=== PATIENT | female | born 1980 | race Caucasian/White ===

== ENCOUNTER 2017-10-15 11:40 | Emergency (ER) | payer MEDICAID, SELFPAY ==
[2017-10-15 11:41] VITALS: BP 140/116; PULSE 111; RESP 16; TEMP 36.8; O2SAT 98; BMI 47.5
--- NOTE | 2017-10-15 11:59 | CT_ITS ---
STUDY: CT BRAIN WITHOUT CONTRAST REASON FOR EXAM: Female, 37 years old. HIT TOP OF HEAD, NO LOC RADIATION DOSAGE (If Supplied By Facility): CTDIvol = ( 60.81 ) mGy, DLP = ( 998.67 ) mGycm TECHNIQUE: Transaxial CT imaging of the brain was performed without administration of intravenous contrast material. Individualized dose optimization techniques were used for this CT. COMPARISON: None. FINDINGS: Normal soft tissue structures. Normal calvarium. Normal size ventricles and extra-axial spaces for the patient's age. Normal white matter tracts of the cerebral hemispheres. Normal basal ganglia and thalami. Normal brainstem. Normal cerebellum. There is no intracranial hemorrhage. There are no findings of an acute ischemic infarction. There is a mucosal retention cyst in the left maxillary sinus measures [address]/Brain/Head without Contrast IMPRESSION: Normal unenhanced CT scan of the brain. Electronically Signed: Yulia Boyce MD at 12:32 EDT Tel , Service support ,
--- NOTE | 2017-10-15 12:43 | ED.DCSUM_ITS ---
- ER Visit Summary Date of Service: 10/15/17 Chief Complaint: [Head injury] History of Present Illness: The patient is a 37 F [presents the emergency department with a head injury that occurred 5 days ago. Patient states that she was putting some things in the trunk of her car when the lid came down and struck her on top of the head. Patient had no loss of consciousness. Patient had some nausea and vomiting the first day. Patient states that since she has had severe headaches and has been unable to sleep at night. Patient complains of nausea yesterday with no vomiting. Currently rates her headache as a 3 out of 10. Patient denies any difficulty with balance or speech.] Physical Examination: [HEENT-PERRLA, EOMI. Cranial nerves II through XII grossly intact. TMs clear. Mucous membranes moist. No adenopathy. No evidence of trauma to her scalp. Cardiovascular-regular rate and rhythm without murmur or ectopy Lungs-clear to auscultation, chest wall stable without crepitus or subcu emphysema Abdomen-normoactive bowel sounds, soft, nontender, no rebound or rigidity, no peritoneal signs. Neuro [id number] and heel durant testing within normal limits, negative Romberg, negative for drift, fundi benign Extremities-intact ?4, normal range of motion, normal pulses, atraumatic] Test Results: [CT scan of the brain without contrast was normal.] Emergency Department Course and Treatment: [Patient advised use Motrin or Tylenol for discomfort] Treatment Plan: [Patient to follow-up with her primary care physician within next 5-7 days.] Disposition: [Discharged home in stable condition] Impression: [Closed head injury/concussion] This note was generated with [employer] dictation software. It may contain incorrect words, spelling, and punctuation that were not noted in review of the chart prior to signing Head injury ED Disposition - Plan for ED Patient: Chief Complaint: Head Injury Referrals: Morgan De MD [Primary Care Provider] -
--- NOTE | 2017-10-15 12:43 | ED.DEP ---
ED Disposition - Plan for ED Patient: Chief Complaint: Head Injury Instructions: ED Concussion Referrals: Morgan De MD [Primary Care Provider] - 5-7 Days
[2017-10-15 13:01] VITALS: BP 121/77; PULSE 62; RESP 15; O2SAT 98
== END 2017-10-15 13:02 | disposition home or self-care (01) ==
LOC: ED 12:24
PROVIDERS: Emergency Provider Emergency Medicine; PCP Family Medicine
DX: S06.0X0A Concussion without loss of consciousness, initial encounter (principal); Z72.0 Tobacco use; Z79.899 Other long term (current) drug therapy; W20.8XXA Other cause of strike by thrown, projected or falling object, initial encounter; Y93.89 Activity, other specified; Y92.89 Other specified places as the place of occurrence of the external cause; Y99.8 Other external cause status
CPT/HCPCS: 70450; 99282

== ENCOUNTER → 2019-03-03 | Outpatient (CLI) | payer MEDICAID, SELFPAY ==
--- NOTE | 2019-03-03 11:10 | LES_PTH ---
PATIENT: HOSSEIN TERRAZAS LOC: [facility] U#:[id number] AGE/SX: 38/F ROOM: RE03/03/[address]: Dr. Omar Costa MD : 1980 BED: DIS: 03/03/2019 SPEC #: [id number] RECD: 03/03/19 14:10 STATUS: HELIO MARCIO #: [id number] KERON: 03/03/19 11:[address]: Omar Costa DEPT: SURGICAL PATHOLOGY RECD BY: Tari Higginbotham ENTERED: 03/03/19 15:19 SP TYPE: Lesion OTHR DR: Dr. Morgan De MD Tissues: Skin of nose, NOS Procedures: Surgery Specimen Level III HEADER OPERATION: Brow lesion removal (from left nasal bridge) PRE-OP DIAGNOSIS: Left nasal canthus lesion, likely cyst on removal TISSUE SUBMITTED: Left nasal canthus lesion MICROSCOPIC DIAGNOSIS Left nasal canthus lesion, biopsy: Epidermal inclusion cyst. SHERIF:chris 03/04/19 MICROSCOPIC DESCRIPTION Slides are reviewed. GROSS DESCRIPTION Received in fixative is one container labeled with the patient's name and designated left brow area. The specimen consists of an irregular fragment of pink-white soft tissue measuring 1.5 x 1 x 0.3 cm. The specimen is totally submitted in one cassette. / AM:chris 03/03/19 TC:5 CPT: 98194
== END | disposition home or self-care (01) ==
LOC: LABSPEC 14:30
PROVIDERS: Family Provider Family Medicine; PCP Family Medicine; Referring Provider Ophthalmology; Visit Provider Ophthalmology
DX: L98.9 Disorder of the skin and subcutaneous tissue, unspecified (principal)
CPT/HCPCS: 88304; 88305

== ENCOUNTER → 2020-01-05 | Outpatient (CLI) | payer MEDICAID, SELFPAY ==
--- NOTE | 2020-01-05 | LES_PTH ---
PATIENT: HOSSEIN TERRAZAS LOC: [facility] U#:[id number] AGE/SX: 39/F ROOM: RE01/05/[address]: Dr. Tori Costa MD : 1980 BED: DIS: 01/05/2020 SPEC #: [id number] RECD: 01/05/20 17:48 STATUS: HELIO MARCIO #: [id number] KERON: 01/05/20 00:[address]: Tori Costa DEPT: SURGICAL PATHOLOGY RECD BY: Xavier Bhatia ENTERED: 01/06/20 10:22 SP TYPE: Lesion OTHR DR: Dr. Morgan De MD Tissues: Skin of eyelid, NOS Procedures: Surgery Specimen Level III HEADER OPERATION: Lesion removal from left brow PRE-OP DIAGNOSIS: Possible inclusion cyst TISSUE SUBMITTED: Left medial brow lesion MICROSCOPIC DIAGNOSIS Left medial brow lesion, biopsy: Consistent with epidermal inclusion cyst. SJ:chris 7/24/20 MICROSCOPIC DESCRIPTION Slides are reviewed. GROSS DESCRIPTION Received in fixative is one container labeled with the patient's name and designated left brow. The specimen consists of two irregular fragments of pink-bolaños soft tissue that in aggregate measure 1 x 0.5 x 0.2 cm. The specimen is totally submitted in one cassette. / AM:chris 01/06/20 TC:5 CPT: 71125
== END | disposition home or self-care (01) ==
LOC: LABSPEC 01-06 06:51
PROVIDERS: PCP Family Medicine; Referring Provider Family Medicine; Visit Provider Family Medicine
DX: L98.9 Disorder of the skin and subcutaneous tissue, unspecified (principal)
CPT/HCPCS: 88304; 88305

== ENCOUNTER 2022-05-23 19:56 | Emergency (ER) | payer MEDICAID, SELFPAY ==
[2022-05-23 19:57] VITALS: BP 117/58; PULSE 88; RESP 18; TEMP 36.6; O2SAT 99; BMI 37.8
--- NOTE | 2022-05-23 20:41 | EKG12_ITS ---
Test Reason : CP Blood Pressure : / mmHG Vent. Rate : 075 BPM Atrial Rate : 075 BPM P-R Int : 198 ms QRS Dur : 086 ms QT Int : 384 ms P-R-T Axes : 051 024 075 degrees QTc Int : 428 ms Normal sinus rhythm Normal ECG Confirmed by SHARON LOPEZ, BENJAMIN ([id number]), commissioning editor MELITON HDEZ ([id number]) on 05/28/2022 10:46:13 AM Referred By: TL Confirmed By:GABRIELA HERRERA MD
[2022-05-23] MEDS: Aspirin 81 MG TAB.CHEW 324 MG PO (20:46)
--- NOTE | 2022-05-23 20:50 | RAD_ITS ---
STUDY: X-RAY CHEST REASON FOR EXAM: Female, 42 years old. CHEST PAIN chest pain TECHNIQUE: XR Chest 2 Views COMPARISON: None FINDINGS: There is no demonstrated pleural abnormality. Normal size heart. Normal mediastinum and bneito. Normal visualized pulmonary arteries. Normal visualized aortic arch and descending thoracic aorta. Normal visualized thoracic spine. Normal visualized ribs, clavicles, and shoulders. There is no demonstrated abnormality of the visualized soft tissue structures of the upper abdomen. RAD/Chest PA and Lateral IMPRESSION: There are no acute findings. Electronically Signed: Colin Pablo MD at 21:09 EST ,
[2022-05-23 20:53] LABS: Absolute Lymphocyte Count 2.73 X10^3/uL (0.83-4.51); Absolute Neutrophil Count 5.6 X10^3/uL (2.0-7.7); Basophil# 0.04 X10^3/uL; Basophil% 0.4 % (0-1); Eosinophil# 0.14 X10^3/uL; Eosinophils% 1.5 % (0-5); Hematocrit 39.7 % (37-47); Hemoglobin 12.1 g/dL (12.0-15.0); Lymphocyte # 2.73 X10^3/ul (0.83-4.51); Lymphocyte % 29.7 % (19-41); Mean Corp Hgb Conc 30.5 g/dL (32-36); Mean Corpuscular Hgb 23.4 pg (27.0-32.0); Mean Corpuscular Volume 76.8 fL (81-99); Mean Platelet Vol. 10.5 fl (6.2-12.0); Monocyte# 0.61 X10^3/uL; Monocyte% 6.6 % (0-10); NRBC Flagged by Analyzer 0 % (0-5); Neutrophil # 5.64 X10^3/uL (2.7-7.7); Neutrophil % 61.6 % (47-70); Platelet Count 504 K/mm3 (150-450); RBC Distribution Width CV 16.4 % (11.6-14.6); RBC Distribution Width SD 45.7 fl (35.1-43.9); Red Blood Count 5.17 M/mm3 (4.2-5.4); White Blood Count 9.2 K/mm3 (4.4-11.0)
[2022-05-23 20:55] VITALS: O2SAT 99
[2022-05-23 21:12] LABS: Anion Gap 9 (5-15); BUN 11 mg/dL (7-18); BUN/Creat Ratio 11.2 RATIO (10-20); Chloride 105 mmol/L (98-107); Creatinine, Serum 0.98 mg/dL (0.55-1.02); EST Glomerular Filtration Rate 66 mL/min (>60); Est Glom Filt Rate - Afr Amer 80 mL/min (>60); Estimated Creatinine Clearance 65.89 ml/min; Glucose 121 mg/dL (74-106); Potassium 3.8 mmol/L (3.5-5.1); Sodium Level 137 mmol/L (136-145); Troponin-I HS (w/2H Reflex) 3 pg/mL (3.0-54.0)
[2022-05-23 21:57] VITALS: BP 126/78; PULSE 91; RESP 16; O2SAT 100
[2022-05-23 22:51] LABS: Reflex Troponin-HS? (from REC) Y
[2022-05-23 23:02] LABS: Troponin-I HS 3 pg/mL (3.0-54.0)
--- NOTE | 2022-05-23 23:56 | EDS_ITS ---
HPI History of Present Illness Chief Complaint: Chest Pain Informant: patient Narrative Narrative: Chest pain at rest this evening states twisting sensation left breast went to the left chest and upper shoulder. Pain into the back. No nausea. No diaphoresis. Denies recent illness. History of hyperlipidemia tobacco and diabetes. No family history less than 55 with MIs. Stress test years ago. No recent travel, surgeries, immobilizations. No history of PE or DVT. Symptoms lasted approximately 15 minutes initially resolved and return. On arrival to the ED symptoms subsided. No previous similar symptoms in the past. Prior Similar Symptoms: No CVD Risk Factors: Positive for Diabetes, Hypercholesterolemia and Smoking PE Risk Factors: Negative for Recent Travel/Surgery, Recent Immobilization or Prior DVT or PE [facility] Medical History Diabetes Hyperlipidemia Home Medications paroxetine HCl 40 mg tablet (Paxil) 40 mg PO DAILY 02/20/14 [History Last Taken Unknown] atorvastatin 20 mg tablet 20 mg PO DAILY 05/23/22 [History Last Taken Unknown] ferrous gluconate 324 mg (37.5 mg iron) tablet 324 mg PO QODAY 05/23/22 [History Last Taken Unknown] fluoxetine 20 mg capsule 20 mg PO DAILY 05/23/22 [History Last Taken Unknown] levothyroxine 100 mcg tablet 100 mcg PO DAILY 05/23/22 [History Last Taken Unknown] Allergy/AdvReac Type Severity Reaction Status Date / Time Penicillins [PCN] Allergy Unknown Verified 05/23/22 19:59 Social History Smoking Status: Current every day smoker tobacco type: cigarettes ROS ROS ED Constitutional Constitutional ED: Denies chills, fever(s) or sweats Eyes Eyes: Denies change in vision ENT ENT ED: Denies dysphagia or sore throat Cardiovascular Cardiovascular: Reports chest pain; Denies leg edema, palpitations or racing heartbeat Respiratory/Chest Respiratory/Chest: Denies cough, dyspnea or dyspnea on exertion Gastrointestinal Gastrointestinal: Denies abdominal pain, diarrhea, nausea or vomiting Genitourinary Genitourinary ED: Denies dysuria, hematuria or urinary frequency Musculoskeletal Musculoskeletal: Denies back pain, extremity pain or neck pain Integumentary Denies rash or wounds Neurologic Neurologic: Denies headache(s), paresthesias or weakness EXAM Physical Exam Const Vital Signs: 05/23/22 19:57 05/23/22 20:18 05/23/22 20:55 Temperature 97.9 F Temperature Source Temporal Pulse Rate 88 Respiratory Rate 18 Respiratory Effort Normal Non-Labored Blood Pressure 117/58 L Blood Pressure Mean 77 Pulse Ox 99 99 Oxygen Delivery Method Room Air Room Air 05/23/22 21:57 Temperature Temperature Source Pulse Rate 91 Respiratory Rate 16 Respiratory Effort Blood Pressure 126/78 H Blood Pressure Mean 94 Pulse Ox 100 Oxygen Delivery Method Room Air Positive well nourished and well developed General Appearance ED: well developed and NAD HEENT Reports moist mucous membranes normocephalic and atraumatic Eyes PERRL, EOMs intact bilaterally and conjunctivae normal General Eye ED: Yes normal appearance of both eyes Neck no lymphadenopathy and supple General: Negative for tenderness Chest Wall Chest: Negative for tenderness Resp normal respiratory effort and normal air movement Effort and Inspection: symmetric chest movement; Negative for respiratory distress Cardio regular rate, regular rhythm and no murmurs Peripheral Pulses: pulses 2+ throughout GI normal to inspection, nondistended, normoactive bowel sounds and non-tender Palpation: Negative for guarding or rebound tenderness present Back/Spine no CVA tenderness and no thoracic nor lumbar tenderness Extremity normal to inspection General Extremety ED: Negative for edema or tenderness General Extremity: Negative for edema Neuro oriented x3 and no sensory deficits noted Sensorium / Orientation: awake and alert Skin no rashes or lesions noted and no wounds Heart Score History: Slightly/Non-Suspicious ECG: Normal Age: </= 45 years Risk Factors: 1 or 2 Risk Factors Troponin: </= Normal Limit Score: 1 MDM MDM MDM Narrative Medical decision making narrative: Patient asymptomatic on arrival. Treated with aspirin cardiac work-up negative troponin x2. 2 view chest x-ray reviewed by myself and read by radiology negative for acute process. On reevaluation symptoms remain resolved. Heart score is a 1. Discharged outpatient follow-up with strict return precautions. All questions were answered. Lab Data Attestation: I reviewed the patient's lab results. Labs: Laboratory Results - last 24 hr 05/23/22 05/23/22 05/23/22 20:47 20:47 22:26 WBC 9.2 RBC 5.17 Hgb 12.1 Hct 39.7 MCV 76.8 L MCH 23.4 L MCHC 30.5 L RDW Std Deviation 45.7 H RDW Coeff of Courtney 16.4 H Plt Count 504 H MPV 10.5 Immature Gran % (Auto) 0.200 Neut % (Auto) 61.6 Lymph % (Auto) 29.7 [place] [facility] % (Auto) 6.6 Eos % (Auto) 1.5 Baso % (Auto) 0.4 Absolute Neuts (auto) 5.6 Absolute Lymphs (auto) 2.73 Nucleated RBC % 0 Sodium 137 Potassium 3.8 Chloride 105 Carbon Dioxide 23.0 Anion Gap 9 BUN 11 Creatinine 0.98 Estim Creat Clear Calc 65.89 Est GFR (MDRD) Af Amer 80 Est GFR (MDRD) Non-Af 66 BUN/Creatinine Ratio 11.2 Glucose 121 H Calcium 10.0 Troponin I High Sens 3 3 Radiography Diagnostic Testing: Clinical Impression(s) from Imaging Studies Chest X-Ray 05/23/22 20:50 IMPRESSION: There are no acute findings. Electronically Signed: Colin Pablo MD at 21:09 EST Reading Location ID and State: [facility] / [place] , Service support , EKG Initial EKG: Attestation: I personally reviewed and interpreted this EKG as follows: Comments: Sinus rate of 75, no ST or T wave changes. Discharge Plan Triage Chief Complaint: Chest Pain ED Provider: Bret Dominguez Dx/Rx/DC Orders Clinical Impression: Chest pain, History of diabetes mellitus, Tobacco dependence Instructions: ED Chest Pain, Uncertain Cause Prescriptions: No Action paroxetine HCl [Paxil] 40 MG tablet 40 mg PO DAILY atorvastatin 20 mg tablet 20 mg PO DAILY Label Comments: take 1 tablet by mouth at bedtime levothyroxine 100 mcg tablet 100 mcg PO DAILY fluoxetine 20 mg capsule 20 mg PO DAILY Label Comments: take 1 capsule by mouth once daily ferrous gluconate 324 mg (37.5 mg iron) tablet 324 mg PO QODAY Label Comments: take 1 tablet by mouth every other day with breakfast Primary Care Provider: Norberto Will Referrals: Norberto Will MD [Primary Care Provider] - 3-5 Days Activity Restrictions/Additional Instructions: Cardiac work-up negative today. Follow-up with your doctor for further testing. Return if any worsening symptoms. Disposition Disposition: Home, Self Care Discharge Date/Time: 05/23/22 23:43
== END 2022-05-23 23:43 | disposition home or self-care (01) ==
PROVIDERS: Emergency Provider Emergency Medicine; PCP Family Medicine; Visit Provider Emergency Medicine
DX: R07.9 Chest pain, unspecified (principal); E11.9 Type 2 diabetes mellitus without complications; M54.9 Dorsalgia, unspecified; E78.5 Hyperlipidemia, unspecified; F17.210 Nicotine dependence, cigarettes, uncomplicated
CPT/HCPCS: 71046; 80048; 84484; 85025; 93005; 99283; A4216

== ENCOUNTER 2023-05-09 19:39 | Emergency (ER) | payer MEDICAID, SELFPAY ==
[2023-05-09 19:40] VITALS: BP 119/79; PULSE 91; RESP 16; TEMP 36.8; O2SAT 93; BMI 37.6
--- NOTE | 2023-05-09 20:21 | EDS_ITS ---
HPI History of Present Illness Chief Complaint: Head Injury Informant: patient Onset/Context/Timing Onset: Today Mechanism/Context: Blunt Injury Quality of Pain: Stabbing and Throbbing Location: Frontal headache Worsened by: Turning her head to the right Relieved by: Closing her eyes Associated Symptoms Associated Symptoms: Negative for Parasthesias, Weakness, Loss of function, Inability to ambulate, Loss of consciousness or Amnesia Narrative Narrative: Patient presents with a head injury that occurred today. Patient states she was cleaning up a mess and stood up when she did not realize that the freezer door was open. Patient states she hit her head on the bottom of the freezer door. Patient denies any loss of consciousness. Patient states her pain radiates from the frontal area to the bilateral ears and into her neck. Patient states her pain is worse when she turns her head to the right. Patient states it is better when she is able to close her eyes. Patient admits to some nausea but denies any vomiting. Patient denies any paresthesias or weakness. Patient denies any other injuries. [facility] Medical History (Updated 05/09/23 @ 21:[address] Abraham Moreira DO) Diabetes Hyperlipidemia Hypothyroidism Home Medications levothyroxine 100 mcg tablet 100 mcg PO DAILY 05/23/22 [History Last Taken Unknown] Allergy/AdvReac Type Severity Reaction Status Date / Time Penicillins [PCN] Allergy Unknown Verified 05/09/23 19:43 Surgical History no surgical history no surgical history Social History Smoking Status: Current every day smoker tobacco type: cigarettes ROS ROS ED Constitutional Constitutional ED: Denies chills or fever(s) Eyes Eyes: Denies blurry vision or change in vision ENT ENT ED: Denies rhinorrhea or sore throat Cardiovascular Cardiovascular: Denies chest pain or palpitations Respiratory/Chest Respiratory/Chest: Denies cough or dyspnea Gastrointestinal Gastrointestinal: Reports nausea; Denies vomiting Genitourinary Genitourinary ED: Denies dysuria or hematuria Musculoskeletal Musculoskeletal: Reports neck pain; Denies back pain Integumentary Denies abscess or rash Neurologic Neurologic: Reports headache(s); Denies weakness Allergic/Immunologic Allergic/Immunologic ED: Denies mouth swelling or urticaria EXAM Physical Exam Const Vital Signs: 05/09/23 19:40 05/09/23 19:50 Temperature 98.3 F Temperature Source Temporal Pulse Rate 91 Respiratory Rate 16 Respiratory Pattern Normal Blood Pressure 119/79 Blood Pressure Mean 92 Pulse Ox 93 Oxygen Delivery Method Room Air Room Air Positive well nourished and well developed General Appearance ED: well developed and NAD HEENT HEENT Narrative: There is mild tenderness over the frontal scalp. There is no bony crepitance or step-off noted. There are no lacerations noted. There is no edema or ecchymosis noted. Eyes PERRL and EOMs intact bilaterally Neck Neck Narrative: There is tenderness over the cervical paraspinal muscles bilaterally. There is mild midline tenderness over the lower cervical spine. There is no bony crepitance or step-off. There is no edema or ecchymosis. Range of motion was slightly limited in right rotation secondary to pain. Neuro oriented x3, CN's II-XII intact bilaterally, moves all extremities, no focal motor deficits and no sensory deficits noted Scott Coma Scale: document GCS findings Spontaneous Obeys Commands Oriented 15 Sensorium / Orientation: alert Motor Exam: strength 5/5 throughout Psych mental status grossly normal MDM MDM MDM Narrative Medical decision making narrative: Differential diagnosis includes intracranial bleeding, concussion, closed head injury, cervical spine fracture, and acute cervical strain. CT scan of the brain will be obtained to assess for intracranial bleeding. CT scan of the cervical spine will be obtained to assess for cervical spine fracture. Radiography Diagnostic Testing: Clinical Impression(s) from Imaging Studies Brain CT 05/09/23 20:34 IMPRESSION: Negative head/brain CT without intravenous contrast. There has been no change from the reference exam. Electronically Signed: Frank Bello MD at 21:19 EST , Cervical Spine CT 05/09/23 20:34 IMPRESSION: No evidence of acute cervical spinal fracture or spondylolisthesis. Electronically Signed: Frank Bello MD at 21:27 EST , CT scan of the brain was obtained. There is no acute intracranial abnormality. This was interpreted by the radiologist and was also independently reviewed by myself. CT scan of the cervical spine was obtained. There is no cervical spine fracture or spondylolisthesis. This was interpreted by the radiologist and was also independently reviewed by myself. Treatment and Re-Evaluation Narrative: Patient was advised of her findings. Patient was instructed to take Tylenol or ibuprofen as needed for pain. Patient was instructed to use ice to her neck. Patient was instructed to follow-up with her primary care physician in 5 to 7 days. Patient understood and was agreeable with the plan. All questions were answered. Discharge Plan Triage Chief Complaint: Head Injury ED Provider: Abraham Moreira Dx/Rx/DC Orders Clinical Impression: Closed head injury, Hypothyroidism Instructions: ED Head Injury (Adult) Prescriptions: No Action levothyroxine 100 mcg tablet 100 mcg PO DAILY Primary Care Provider: Norberto Will Referrals: Norberto Will MD [Primary Care Provider] - 5-7 Days Disposition Disposition: Home, Self Care
--- NOTE | 2023-05-09 20:34 | CT_ITS ---
EXAM: CT HEAD WITHOUT INTRAVENOUS CONTRAST CLINICAL INDICATION: Injury/Pain TECHNIQUE: Multiple axial images were obtained of the head without intravenous contrast. This CT exam was performed using one or more of the following dose reduction techniques: automated exposure control, adjustment of the mA and/or kV according to patient size, and/or use of iterative reconstruction technique. COMPARISON: 10/15/2017 FINDINGS: BRAIN AND EXTRA-AXIAL SPACES: Unremarkable. No intra- or extra-axial hemorrhage. No evidence of acute infarct. No intracranial mass or mass effect. There is preservation of the navarrete/white matter interface. Posterior fossa structures are unremarkable. Ventricles are appropriate for age. No hydrocephalus. Basal cisterns are patent. BONES/JOINTS: Unremarkable. No discrete lytic or blastic abnormalities. SINUSES: Unremarkable as visualized. Clear. MASTOID AIR CELLS: Unremarkable. Clear. ORBITS: Visualized globes, extraocular muscles, optic nerves and retrobulbar fat appear unremarkable. CT/Brain/Head without Contrast IMPRESSION: Negative head/brain CT without intravenous contrast. There has been no change from the reference exam. Electronically Signed: Frank Bello MD at 21:19 EST ,
--- NOTE | 2023-05-09 20:34 | CT_ITS ---
EXAM: CT CERVICAL SPINE WITHOUT INTRAVENOUS CONTRAST CLINICAL INDICATION: Injury/Pain TECHNIQUE: Helically acquired images were obtained of the cervical spine without intravenous contrast. 2D reformatted images were reviewed. This CT exam was performed using one or more of the following dose reduction techniques: automated exposure control, adjustment of the mA and/or kV according to patient size, and/or use of iterative reconstruction technique. COMPARISON: No relevant prior studies available. FINDINGS: VERTEBRAE: Unremarkable. No fracture. No traumatic subluxation. No discrete lytic or blastic abnormality. Normal alignment. Normal craniocervical junction and cervicothoracic junction. DISCS/SPINAL CANAL/NEURAL FORAMINA: Unremarkable. Disc heights are preserved. No critical stenosis. SOFT TISSUES: Unremarkable. No prevertebral soft tissue swelling. LYMPH NODES: Unremarkable. No cervical adenopathy. LUNG APICES: Unremarkable as visualized. Clear. CT/Spine Cervical without Contras IMPRESSION: No evidence of acute cervical spinal fracture or spondylolisthesis. Electronically Signed: Frank Bello MD at 21:27 EST ,
== END 2023-05-09 22:24 | disposition home or self-care (01) ==
PROVIDERS: Emergency Provider Emergency Medicine; PCP Family Medicine; Visit Provider Emergency Medicine
DX: S09.90XA Unspecified injury of head, initial encounter (principal); E11.9 Type 2 diabetes mellitus without complications; F17.210 Nicotine dependence, cigarettes, uncomplicated; E03.9 Hypothyroidism, unspecified; E78.5 Hyperlipidemia, unspecified; W22.09XA Striking against other stationary object, initial encounter
CPT/HCPCS: 70450; 72125; 99282

== ENCOUNTER 2023-09-06 15:07 | Emergency (ER) | payer MEDICAID, SELFPAY ==
[2023-09-06 15:08] VITALS: BP 104/79; BP 117/76; PULSE 85; PULSE 90; RESP 15; RESP 16; TEMP 35.5; O2SAT 94; O2SAT 98
--- NOTE | 2023-09-06 15:51 | EX.ED.DYSGE1 ---
HPI <JERICHO Hodges - Last Filed: 09/06/23 17:57> History of Present Illness Chief Complaint: Chest Other Narrative Narrative: 43-year-old female with PMH of DM2, hypothyroidism has had 4 days of throbbing left-sided chest pain. Its above her left breast and into the side. It was very mild over the last 3 days but seemed to intensify today. It is not exertional or pleuritic. She has no shortness of breath, nausea or vomiting. She states she had about a month of a cough which resolved a week ago. No recent fever or chills. She smokes 1/2 PPD. No history of DVT/PE. PFSH <JERICHO Hodges - Last Filed: 09/06/23 17:57> [facility] Medical History (Updated 09/06/23 @ 16:32 by JERICHO Hodges) Diabetes Hyperlipidemia Hypothyroidism Home Medications levothyroxine 100 mcg tablet 100 mcg PO DAILY 05/23/22 [History Last Taken Unknown] Allergy/AdvReac Type Severity Reaction Status Date / Time Penicillins [PCN] Allergy Unknown Verified 09/06/23 15:11 Social History Smoking Status: Current every day smoker tobacco type: cigarettes ROS <JERICHO Hodges - Last Filed: 09/06/23 17:57> ROS ED ROS Narrative Constitutional: Negative for fever, chills, malaise. CVS: Positive for chest pain. Negative for palpitations, syncope. Respiratory: Negative for shortness of breath, cough, orthopnea. GI: Negative for abdominal pain, nausea, vomiting. EXAM <JERICHO Hodges - Last Filed: 09/06/23 17:57> Physical Exam Narrative Exam Narrative: CONST: Patient sitting in no acute distress. EYES: Normal inspection. NECK: Normal inspection. RESP: No respiratory distress, CTAB. CVS: Regular rate and rhythm, no murmur, no gallop. Tenderness left anterior chest wall, no deformity or crepitus. ABD: Soft and nontender, no guarding or rebound, nondistended, no hepatosplenomegaly. Back: Normal inspection. SKIN: Color normal, no rash, warm, dry, intact. EXTREMITIES: Normal appearance, no pedal edema. NEURO: Oriented x4. PSYCH: Normal affect. Const Vital Signs: 09/06/23 15:08 09/06/23 15:08 09/06/23 15:42 Temperature 96 F L Temperature Source Temporal Pulse Rate 90 85 Respiratory Rate 16 15 Respiratory Effort Normal Non-Labored Respiratory Pattern Normal Blood Pressure 117/76 104/79 Blood Pressure Mean 89 87 Pulse Ox 94 98 Oxygen Delivery Method Room Air Room Air 09/06/23 17:08 Temperature Temperature Source Pulse Rate 85 Respiratory Rate 20 H Respiratory Effort Respiratory Pattern Blood Pressure 102/66 Blood Pressure Mean 78 Pulse Ox 97 Oxygen Delivery Method Room Air <Dr. Kami Lai DO - Last Filed: 09/12/23 08:23> Physical Exam Const Vital Signs: 09/06/23 15:08 09/06/23 15:08 09/06/23 15:42 Temperature 96 F L Temperature Source Temporal Pulse Rate 90 85 Respiratory Rate 16 15 Respiratory Effort Normal Non-Labored Respiratory Pattern Normal Blood Pressure 117/76 104/79 Blood Pressure Mean 89 87 Pulse Ox 94 98 Oxygen Delivery Method Room Air Room Air 09/06/23 17:08 Temperature Temperature Source Pulse Rate 85 Respiratory Rate 20 H Respiratory Effort Respiratory Pattern Blood Pressure 102/66 Blood Pressure Mean 78 Pulse Ox 97 Oxygen Delivery Method Room Air MDM <JERICHO Hodges - Last Filed: 09/06/23 17:57> [facility] [place] MDM Narrative Medical decision making narrative: History gathered from: Patient and family member Differential: ACS, GERD, chest wall pain Patient has had 4 days of left-sided chest pain of worsened in intensity this morning. It occurs at rest and is not exertional or pleuritic. No associated symptoms. She appears well and nontoxic and is afebrile with normal vital signs. She has normal cardiopulmonary exam. She has mild left chest wall tenderness with no deformity or crepitus and no skin changes. No abdominal tenderness. EKG is sinus rhythm with no ischemic changes and troponin is 4. With 4 days of continuous pain. She does not require serial enzymes. CBC and BMP overall unremarkable. CXR shows no acute process. She is PERC negative so I did not order D-dimer. She was treated with Toradol. I discussed symptomatic management at home and return precautions and she was discharged in stable condition. Lab Data Attestation: I reviewed the patient's lab results. Labs: Laboratory Results - last 24 hr 09/06/23 15:45 WBC 8.8 RBC 5.86 H Hgb 16.3 H Hct 50.6 H MCV 86.3 MCH 27.8 MCHC 32.2 RDW Std Deviation 43.8 RDW Coeff of Courtney 13.8 Plt Count 339 MPV 9.8 Immature Gran % (Auto) 0.200 Neut % (Auto) 67.6 Lymph % (Auto) 23.7 Hinds % (Auto) 6.8 Eos % (Auto) 1.2 Baso % (Auto) 0.5 Absolute Neuts (auto) 6.0 Absolute Lymphs (auto) 2.09 Nucleated RBC % 0 Sodium 139 Potassium 3.6 Chloride 106 Carbon Dioxide 28.0 Anion Gap 5 BUN 12 Creatinine 0.99 Est GFR (MDRD) Af Amer 79 Est GFR (MDRD) Non-Af 66 BUN/Creatinine Ratio 12.1 Glucose 119 H Calcium 9.5 Troponin I High Sens 4 Radiography Diagnostic Testing: Clinical Impression(s) from Imaging Studies Chest X-Ray 09/06/23 15:58 IMPRESSION: Normal x-ray examination of the chest. Electronically Signed: Honorio Downey MD at 16:22 EDT , ED attending interpretation of 2-view chest x-ray shows normal heart size, no acute infiltrate, edema, or effusion. EKG Initial EKG: Attestation: I personally reviewed and interpreted this EKG as follows: Comments: Normal sinus rhythm 83 bpm Normal intervals, no acute ischemic changes <Dr. Kami Lai, DO - Last Filed: 09/12/23 08:23> [facility] Narrative Medical decision making narrative: History gathered from: Patient and family member Differential: ACS, GERD, chest wall pain Patient has had 4 days of left-sided chest pain of worsened in intensity this morning. It occurs at rest and is not exertional or pleuritic. No associated symptoms. She appears well and nontoxic and is afebrile with normal vital signs. She has normal cardiopulmonary exam. She has mild left chest wall tenderness with no deformity or crepitus and no skin changes. No abdominal tenderness. EKG is sinus rhythm with no ischemic changes and troponin is 4. With 4 days of continuous pain. She does not require serial enzymes. CBC and BMP overall unremarkable. CXR shows no acute process. She is PERC negative so I did not order D-dimer. She was treated with Toradol. I discussed symptomatic management at home and return precautions and she was discharged in stable condition. I have personally performed a face to face assessment of the patient and have reviewed the JAYJAY Note. I performed a substantive portion of the visit including all aspects of the following. My jalloh findings include: History is Patient presents with 4 days of left-sided chest pain that worsened in intensity this morning. Is not pleuritic or exertional. Patient overall is well-appearing. Does report over the last month she has had cough. Is PE RC negative I do not think requires a D-dimer further workup for pulmonary emboli. Cardiac workup including EKG, chest x-ray and high-sensitivity troponin are normal. Chest x-ray does not show any acute infiltrate, pneumothorax or signs of fluid overload/cardiomegaly. Chest x-ray reviewed by myself as well as radiology. Patient counseled that her pain could be muscle skeletal or pleurisy. Regardless, at this time I think it safe for patient to follow-up outpatient does not require further admission/inpatient cardiac workup. She is agreeable this plan of care. Counseled on alternating NSAIDs and Tylenol for pain control. Discharged home in stable condition. Remains hemodynamically stable in the emergency room. Other additions or changes: [None] Lab Data Labs: Laboratory Results - last 24 hr 09/06/23 15:45 WBC 8.8 RBC 5.86 H Hgb 16.3 H Hct 50.6 H MCV 86.3 MCH 27.8 MCHC 32.2 RDW Std Deviation 43.8 RDW Coeff of Courtney 13.8 Plt Count 339 MPV 9.8 Immature Gran % (Auto) 0.200 Neut % (Auto) 67.6 Lymph % (Auto) 23.7 Hinds % (Auto) 6.8 Eos % (Auto) 1.2 Baso % (Auto) 0.5 Absolute Neuts (auto) 6.0 Absolute Lymphs (auto) 2.09 Nucleated RBC % 0 Sodium 139 Potassium 3.6 Chloride 106 Carbon Dioxide 28.0 Anion Gap 5 BUN 12 Creatinine 0.99 Est GFR (MDRD) Af Amer 79 Est GFR (MDRD) Non-Af 66 BUN/Creatinine Ratio 12.1 Glucose 119 H Calcium 9.5 Troponin I High Sens 4 Radiography Diagnostic Testing: Clinical Impression(s) from Imaging Studies Chest X-Ray 09/06/23 15:58 IMPRESSION: Normal x-ray examination of the chest. Electronically Signed: Honorio Downey MD at 16:22 EDT , Discharge Plan Triage Chief Complaint: Chest Other ED Midlevel Provider: Samantha Andrade ED Provider: Kami Lai Dx/Rx/DC Orders Clinical Impression: Chest pain of unknown etiology Instructions: ED Chest Pain, Uncertain Cause Prescriptions: No Action levothyroxine 100 mcg tablet 100 mcg PO DAILY Primary Care Provider: Norberto Will Referrals: Norberto Will MD [Primary Care Provider] - Activity Restrictions/Additional Instructions: Your screening tests are normal. I recommend alternating Tylenol and ibuprofen as needed and following up with your primary care doctor. Disposition Disposition: Home, Self Care Discharge Date/Time: 09/06/23 18:36
[2023-09-06 15:57] LABS: Absolute Lymphocyte Count 2.09 X10^3/uL (0.83-4.51); Basophil# 0.04 X10^3/uL; Basophil% 0.5 % (0-1); Eosinophil# 0.11 X10^3/uL; Eosinophils% 1.2 % (0-5); Hematocrit 50.6 % (37-47); Hemoglobin 16.3 g/dL (12.0-15.0); Lymphocyte # 2.09 X10^3/ul (0.83-4.51); Lymphocyte % 23.7 % (19-41); Mean Corp Hgb Conc 32.2 g/dL (32-36); Mean Corpuscular Hgb 27.8 pg (27.0-32.0); Mean Corpuscular Volume 86.3 fL (81-99); Mean Platelet Vol. 9.8 fl (6.2-12.0); Monocyte% 6.8 % (0-10); NRBC Flagged by Analyzer 0 % (0-5); Neutrophil # 5.95 X10^3/uL (2.7-7.7); Neutrophil % 67.6 % (47-70); Platelet Count 339 K/mm3 (150-450); RBC Distribution Width CV 13.8 % (11.6-14.6); RBC Distribution Width SD 43.8 fl (35.1-43.9); Red Blood Count 5.86 M/mm3 (4.2-5.4); White Blood Count 8.8 K/mm3 (4.4-11.0)
--- NOTE | 2023-09-06 15:58 | RAD_ITS ---
STUDY: X-RAY CHEST REASON FOR EXAM: Female, 43 years old. chest pain TECHNIQUE: PA and lateral views of the chest. COMPARISON: None. FINDINGS: The lungs are clear and expanded. There is no demonstrated pleural abnormality. Normal size heart. Normal mediastinum and benito. Normal visualized pulmonary arteries. Normal visualized aortic arch and descending thoracic aorta. Normal visualized thoracic spine. Normal visualized ribs, clavicles, and shoulders. There is no demonstrated abnormality of the visualized soft tissue structures of the upper abdomen. RAD/Chest PA and Lateral IMPRESSION: Normal x-ray examination of the chest. Electronically Signed: Honorio Downey MD at 16:22 EDT ,
[2023-09-06 16:14] LABS: Anion Gap 5 (5-15); BUN 12 mg/dL (7-18); BUN/Creat Ratio 12.1 RATIO (10-20); Calcium,Total 9.5 mg/dL (8.5-10.1); Chloride 106 mmol/L (98-107); Creatinine, Serum 0.99 mg/dL (0.55-1.02); EST Glomerular Filtration Rate 66 mL/min (>60); Est Glom Filt Rate - Afr Amer 79 mL/min (>60); Glucose 119 mg/dL (74-106); Potassium 3.6 mmol/L (3.5-5.1); Sodium Level 139 mmol/L (136-145); Troponin-I HS 4 pg/mL (3.0-54.0)
[2023-09-06] MEDS: Ketorolac 15 MG/ML Vial IV (16:18)
--- NOTE | 2023-09-06 16:43 | EKG12_ITS ---
Test Reason : CP Blood Pressure : / mmHG Vent. Rate : 083 BPM Atrial Rate : 083 BPM P-R Int : 182 ms QRS Dur : 086 ms QT Int : 364 ms P-R-T Axes : 060 034 073 degrees QTc Int : 427 ms Normal sinus rhythm Normal ECG Confirmed by Tawanda Rahman ([id number]), electronic news gathering editor ALEXANDRA ANNA ([id number]) on 09/09/2023 9:02:55 AM Referred By: CG/UG Confirmed By:Tawanda Rahman
[2023-09-06 17:08] VITALS: BP 102/66; PULSE 85; RESP 20; O2SAT 97
[2023-09-06 18:27] VITALS: BP 128/65; PULSE 74; RESP 16; TEMP 36.7; O2SAT 99
== END 2023-09-06 18:36 | disposition home or self-care (01) ==
PROVIDERS: Physician Assistant; Emergency Provider Emergency Medicine; PCP Family Medicine; Visit Provider Emergency Medicine
DX: R07.89 Other chest pain (principal); E11.9 Type 2 diabetes mellitus without complications; F17.210 Nicotine dependence, cigarettes, uncomplicated; E03.9 Hypothyroidism, unspecified
CPT/HCPCS: 71046; 80048; 84484; 85025; 93005; 96374; 99283; A4216

== ENCOUNTER 2023-12-02 22:32 | Emergency (ER) | payer MEDICAID, SELFPAY ==
[2023-12-02 22:34] VITALS: BP 126/105; PULSE 85; RESP 18; TEMP 36.4; O2SAT 98; BMI 37.6
[2023-12-02 22:42] VITALS: BP 126/105; PULSE 85; RESP 18; TEMP 36.4; O2SAT 98
[2023-12-02] MEDS: Gabapentin 300 MG Capsule PO (23:33)
[2023-12-02 23:35] VITALS: BP 126/105; PULSE 85; RESP 18; TEMP 36.4; O2SAT 98
--- NOTE | 2023-12-02 23:55 | EX.ED.DYSGE1 ---
HPI History of Present Illness Chief Complaint: Wound Check Informant: patient and spouse/S.O. Narrative Narrative: Presents with pain that is worsened across her right upper quadrant towards her flank. She states a week ago was seen at [place] ED had a rash on her right upper quadrant she states it was white like lesions. She was diagnosed with spider bites. She states since then those has broken and scabbed over. Today pain has gone across her back and is burning sensation. No fevers. History of chickenpox as a child. She has not had shingles. She is a diabetic. Reviewing pictures from her phone of her reported history vesicle like lesions were noted. Prior similar symptoms: No PFSH PFSH Medical History Hypothyroidism Hyperlipidemia Diabetes Home Medications ?Medication ?Instructions ?Recorded ?Last Taken ?Type levothyroxine 100 mcg tablet 100 mcg PO DAILY 05/23/22 Unknown History gabapentin 300 mg capsule 300 mg PO QHS #30 caps 12/02/23 Unknown Rx Allergy/AdvReac Type Severity Reaction Status Date / Time Penicillins (PCN) Allergy Unknown Verified 12/02/23 22:34 Social History Smoking Status: Current every day smoker tobacco type: cigarettes ROS ROS ED Constitutional Constitutional ED: Denies chills, fever(s) or sweats Eyes Eyes: Denies change in vision ENT ENT ED: Denies dysphagia or sore throat Cardiovascular Cardiovascular: Denies chest pain, leg edema, palpitations or racing heartbeat Respiratory/Chest Respiratory/Chest: Denies cough, dyspnea or dyspnea on exertion Gastrointestinal Gastrointestinal: Denies abdominal pain, diarrhea, nausea or vomiting Genitourinary Genitourinary ED: Denies dysuria, hematuria or urinary frequency Musculoskeletal Musculoskeletal: Denies back pain, extremity pain or neck pain Integumentary Reports rash; Denies wounds Neurologic Neurologic: Denies headache(s), paresthesias or weakness EXAM Physical Exam Const Vital Signs: 12/02/23 22:34 12/02/23 22:42 12/02/23 23:35 Temperature 97.5 F L 97.5 F L 97.5 F L Temperature Source Temporal Oral Pulse Rate 85 85 85 Respiratory Rate 18 18 Blood Pressure 126/105 H 126/105 H 126/105 H Blood Pressure Mean 112 112 112 Pulse Ox 98 98 98 Oxygen Delivery Method Room Air Room Air Positive well nourished and well developed General Appearance ED: well developed and NAD HEENT Reports moist mucous membranes normocephalic and atraumatic Eyes EOMs intact bilaterally and conjunctivae normal General Eye ED: Yes normal appearance of both eyes Neck no lymphadenopathy and supple General: Negative for tenderness Chest Wall Chest: Negative for tenderness Resp normal respiratory effort and normal air movement Effort and Inspection: symmetric chest movement; Negative for respiratory distress Cardio regular rate, regular rhythm and no murmurs Peripheral Pulses: pulses 2+ throughout GI normal to inspection, nondistended, normoactive bowel sounds and non-tender Palpation: Negative for guarding or rebound tenderness present Back/Spine no CVA tenderness and no thoracic nor lumbar tenderness Extremity normal to inspection General Extremety ED: Negative for edema or tenderness General Extremity: Negative for edema Neuro oriented x3 and no sensory deficits noted Sensorium / Orientation: awake and alert Skin Skin Narrative: Right upper quadrant scab-like lesions noted in the region of her vesicular lesions from her picture. She had tenderness along the dermatome to the flank region. There is no new vesicles there. Symptoms do not cross midline. MDM MDM MDM Narrative Medical decision making narrative: Interventions / MDM: Differential diagnosis: Shingles, neuralgia Diagnosis considered but do not suspect: N/A My EKG interpretation: N/A Imaging independently reviewed and interpreted by myself: N/A External documents reviewed: N/A Test considered but not ordered:N/A ED course: Nontoxic vital stable. From her history I am concerned for shingles rash and not from spider bite. This consistent. She now has developed neuralgia from this. She is a diabetic. She did not want the steroids. She is over a week of symptoms no indication for this or viral medications. I did discuss gabapentin for neuropathic pain control. She agrees to this. 300 mg start this evening prescription to use nightly for symptom control. She can use ibuprofen as she states no history of CKD or stomach ulcers. She will follow-up with her PCP. All questions were answered. Re-evaluation: stable Disposition discussed with patient/family/significant other: Patient and significant other Case discussed with consulting clinician: N/A This note was generated with Define My Style dictation software. It may contain incorrect words, spelling, and punctuation that were not noted in checking the note before signing. Discharge Plan Triage Chief Complaint: Wound Check Other Complaint: Back ED Provider: Bret Dominguez Dx/Rx/DC Orders Clinical Impression: Shingles rash, Neuralgia of abdomen, History of diabetes mellitus Instructions: ED Shingles (Herpes Zoster) Prescriptions: New gabapentin 300 mg capsule 300 mg PO QHS Qty: 30 0RF No Action levothyroxine 100 mcg tablet 100 mcg PO DAILY Primary Care Provider: Norberto Will Referrals: Norberto Will MD [Primary Care Provider] - 5-7 Days Activity Restrictions/Additional Instructions: History of rash and symptoms consistent with shingles. Take gabapentin as prescribed to help with pain. Use ibuprofen as needed. Your rash is currently scabbed over, no concerns for transferable issues. Follow-up with your doctor. Print Language: Nigerien Disposition Disposition: Home, Self Care Discharge Date/Time: 12/02/23 23:36
== END 2023-12-02 23:36 | disposition home or self-care (01) ==
PROVIDERS: Emergency Provider Emergency Medicine; PCP Family Medicine; Visit Provider Emergency Medicine
DX: B02.9 Zoster without complications (principal); E11.9 Type 2 diabetes mellitus without complications; R21 Rash and other nonspecific skin eruption; F17.210 Nicotine dependence, cigarettes, uncomplicated; E78.5 Hyperlipidemia, unspecified; M79.2 Neuralgia and neuritis, unspecified
CPT/HCPCS: 99283

== ENCOUNTER 2024-05-10 19:14 | Emergency (ER) | payer MEDICAID, SELFPAY ==
[2024-05-10 19:14] VITALS: BP 134/97; PULSE 78; RESP 18; TEMP 36.8; O2SAT 100; BMI 39.4
[2024-05-10 19:16] VITALS: BP 134/97; PULSE 78; RESP 18; TEMP 36.8; O2SAT 100
--- NOTE | 2024-05-10 19:17 | EKG12_ITS ---
Test Reason : DYSRHYTHMIA Blood Pressure : */* mmHG Vent. Rate : 70 BPM Atrial Rate : 70 BPM P-R Int : 210 ms QRS Dur : 84 ms QT Int : 382 ms P-R-T Axes : 29 25 65 degrees QTcB Int : 412 ms Sinus rhythm with 1st degree A-V block Otherwise normal ECG Confirmed by Tawanda Rahman ([id number]), publications editor MELITON HDEZ ([id number]) on 05/11/2024 10:42:29 AM Referred By: Gurpreet Day Confirmed By: Tawanda Rahman
--- NOTE | 2024-05-10 19:35 | RAD_ITS ---
EXAM: XR CHEST, 1 VIEW CLINICAL INDICATION: CP TECHNIQUE: Frontal view of the chest. COMPARISON: 09/06/2023 FINDINGS: LUNGS AND PLEURAL SPACES: No significant abnormality. No consolidation or edema. No pneumothorax. No effusion. HEART: No significant abnormality. Cardiac silhouette not enlarged. MEDIASTINUM: Central airways and mediastinal contour are unremarkable. BONES/JOINTS: No significant abnormality. No acute fracture. SOFT TISSUES: No significant abnormality. RAD/Chest 1 View (Portable) IMPRESSION: No radiographic evidence of acute cardiopulmonary disease. Electronically Signed: Derrek Garcia DO at 20:07 EST ,
[2024-05-10 19:55] LABS: Absolute Lymphocyte Count 2.01 X10^3/uL (0.83-4.51); Absolute Neutrophil Count 5.8 X10^3/uL (2.0-7.7); Basophil# 0.04 X10^3/uL; Basophil% 0.5 % (0-1); Eosinophil# 0.08 X10^3/uL; Hematocrit 50.8 % (37-47); Hemoglobin 16.7 g/dL (12.0-15.0); Lymphocyte # 2.01 X10^3/ul (0.83-4.51); Lymphocyte % 23.9 % (19-41); Mean Corp Hgb Conc 32.9 g/dL (32-36); Mean Corpuscular Hgb 29.3 pg (27.0-32.0); Mean Corpuscular Volume 89.1 fL (81-99); Mean Platelet Vol. 9.6 fl (6.2-12.0); Monocyte# 0.47 X10^3/uL; Monocyte% 5.6 % (0-10); NRBC Flagged by Analyzer 0 % (0-5); Neutrophil # 5.78 X10^3/uL (2.7-7.7); Neutrophil % 68.6 % (47-70); Platelet Count 342 K/mm3 (150-450); RBC Distribution Width SD 42.5 fl (35.1-43.9); White Blood Count 8.4 K/mm3 (4.4-11.0)
[2024-05-10 20:09] LABS: Anion Gap 4 (5-15); BUN 15 mg/dL (7-18); Calcium,Total 9.9 mg/dL (8.5-10.1); Chloride 106 mmol/L (98-107); Creatinine, Serum 0.94 mg/dL (0.55-1.02); EST Glomerular Filtration Rate 70 mL/min (>60); Est Glom Filt Rate - Afr Amer 85 mL/min (>60); Glucose 109 mg/dL (74-106); Potassium 3.9 mmol/L (3.5-5.1); Sodium Level 137 mmol/L (136-145); Troponin-I HS 4 pg/mL (3.0-54.0)
--- NOTE | 2024-05-10 20:15 | ED.VIS.DYS ---
HPI History of Present Illness Chief Complaint: Shortness of Breath Informant: patient Narrative Narrative: 44-year-old patient with type 2 diabetes states she has had cold symptoms for about a week, she visited PCP and had a negative COVID/flu test and was told she probably has a viral illness, but within the past couple days she has developed central and left-sided chest burning that goes into her left upper back, and dyspnea with exertion, and the feeling like it is difficult to get a good deep breath. Some of the discomfort is a little worse when she takes a very deep breath. She denies any history of DVT or PE, no recent leg pain or swelling, no recent immobilization, long travel, hospitalization, or surgery. [facility] Medical History Hypothyroidism Hyperlipidemia Diabetes Home Medications ?Medication ?Instructions ?Recorded ?Last Taken ?Type levothyroxine 100 mcg tablet 100 mcg PO DAILY 05/23/22 Unknown History gabapentin 300 mg capsule 300 mg PO QHS #30 caps 12/02/23 Unknown Rx Allergy/AdvReac Type Severity Reaction Status Date / Time Penicillins (PCN) Allergy Unknown Verified 05/10/24 19:14 Social History Smoking Status: Current every day smoker tobacco type: cigarettes ROS ROS ED Constitutional Constitutional ED: Denies chills or fever(s) Eyes Eyes: Denies change in vision or diplopia ENT ENT ED: Denies ear pain, rhinorrhea or sore throat Cardiovascular Cardiovascular: Reports chest pain; Denies palpitations Respiratory/Chest Respiratory/Chest: Reports cough, dyspnea and dyspnea on exertion; Denies sputum Gastrointestinal Gastrointestinal: Denies abdominal pain, diarrhea, nausea or vomiting Genitourinary Genitourinary ED: Denies dysuria or hematuria Musculoskeletal Musculoskeletal: Reports back pain; Denies neck pain Integumentary Denies abscess or rash Neurologic Neurologic: Denies headache(s), paresthesias or weakness EXAM Physical Exam Const Vital Signs: 05/10/24 19:14 05/10/24 19:16 Temperature 98.3 F 98.3 F Temperature Source Oral Oral Pulse Rate 78 78 Respiratory Rate 18 18 Blood Pressure 134/97 H 134/97 H Blood Pressure Mean 109 109 Pulse Ox 100 100 Oxygen Delivery Method Room Air Room Air Positive well nourished, well developed and obese General Appearance ED: well developed and NAD Nutritional Appearance: obese HEENT Reports moist mucous membranes normocephalic and atraumatic Eyes PERRL and EOMs intact bilaterally Neck full ROM, no lymphadenopathy and supple Resp normal respiratory effort and clear to auscultation bilaterally Cardio regular rate, regular rhythm and no murmurs Rate: Negative for bradycardia or tachycardic GI non-tender and non-distended Auscultation: normoactive bowel sounds Palpation: soft Back/Spine no CVA tenderness General Back: other FROM Extremity normal to inspection General Extremety ED: Negative for edema, pulses abnormal or tenderness General Extremity: Negative for edema or pulses abnormal Neuro oriented x3, CN's II-XII intact bilaterally and no sensory deficits noted Sensorium / Orientation: awake and alert Motor Exam: strength 5/5 throughout Skin no rashes or lesions noted and no wounds MDM MDM MDM Narrative Medical decision making narrative: Labs, EKG obtained which are all normal on my interpretation, and 1 view chest x-ray which was also normal in my interpretation, ruling out pneumonia including walking pneumonia/mycoplasma which has had high prevalence in the area last couple months. Her PERC score is 0, ruling out PE as an etiology for the symptoms without the need for further emergent testing at this time. Differential at this point includes upper GI etiologies such as esophagitis or reflux or esophageal spasm, in addition to pleurisy as a result of a viral infection. Will offer her additional medications for her symptoms such as Toradol and/or Mylanta and advised that she follow-up with her doctor as an outpatient. Lab Data Attestation: I reviewed the patient's lab results. Labs: Laboratory Results - last 24 hr 05/10/24 19:33 WBC 8.4 RBC 5.70 H Hgb 16.7 H Hct 50.8 H MCV 89.1 MCH 29.3 MCHC 32.9 RDW Std Deviation 42.5 RDW Coeff of Courtney 13.0 Plt Count 342 MPV 9.6 Immature Gran % (Auto) 0.400 Neut % (Auto) 68.6 Lymph % (Auto) 23.9 [place] % (Auto) 5.6 Eos % (Auto) 1.0 Baso % (Auto) 0.5 Absolute Neuts (auto) 5.8 Absolute Lymphs (auto) 2.01 Nucleated RBC % 0 Sodium 137 Potassium 3.9 Chloride 106 Carbon Dioxide 26.0 Anion Gap 4 L BUN 15 Creatinine 0.94 Estim Creat Clear Calc 85.20 Est GFR (MDRD) Af Amer 85 Est GFR (MDRD) Non-Af 70 BUN/Creatinine Ratio 16.0 Glucose 109 H Calcium 9.9 Troponin I High Sens 4 Radiography Diagnostic Testing: Clinical Impression(s) from Imaging Studies Chest X-Ray 05/10/24 19:35 IMPRESSION: No radiographic evidence of acute cardiopulmonary disease. Electronically Signed: Derrek Garcia DO at 20:07 EST , Rhythm Strip Rhythm Strip: Sinus Rhythm Rate: 75 Ectopy: None EKG Initial EKG: Attestation: I personally reviewed and interpreted this EKG as follows: Interpretation: Sinus Rhythm, No Acute Injury Pattern and AV Block (1st deg) Comments: Nml axis & intervals except first-degree AV block, otherwise nml EKG Discharge Plan Triage Chief Complaint: Shortness of Breath ED Provider: Gurpreet Day Dx/Rx/DC Orders Clinical Impression: Viral URI with cough, Pleurisy Instructions: ED Pleurisy, ED URI, Viral, No Abx (Adult) Prescriptions: No Action levothyroxine 100 mcg tablet 100 mcg PO DAILY gabapentin 300 mg capsule 300 mg PO QHS Qty: 30 0RF Primary Care Provider: Norberto Will Referrals: Norberto Will MD [Primary Care Provider] - 3-5 Days if not improving Print Language: Cymraes Disposition Disposition: Home, Self Care
[2024-05-10] MEDS: Ketorolac 30 MG/ML Syringe IV (20:25)
[2024-05-10 20:27] VITALS: BP 130/65; PULSE 72; RESP 16; TEMP 36.9; O2SAT 98
[2024-05-10 20:42] VITALS: BP 107/61; PULSE 74; RESP 16; O2SAT 99
== END 2024-05-10 20:46 | disposition home or self-care (01) ==
PROVIDERS: Emergency Provider Emergency Medicine; PCP Family Medicine; Referring Provider Emergency Medicine; Visit Provider Emergency Medicine
DX: J06.9 Acute upper respiratory infection, unspecified (principal); E11.9 Type 2 diabetes mellitus without complications; E78.5 Hyperlipidemia, unspecified; R09.1 Pleurisy; E66.9 Obesity, unspecified
CPT/HCPCS: 71045; 80048; 84484; 85025; 93005; 94760; 96374; 99283; A4216

== ENCOUNTER 2024-10-14 16:43 | Emergency (ER) | payer MEDICAID, SELFPAY ==
[2024-10-14 16:43] VITALS: BP 113/90; PULSE 86; RESP 16; TEMP 36.8; O2SAT 98; BMI 40.4
--- NOTE | 2024-10-14 16:48 | EKG12_ITS ---
Test Reason : CP Blood Pressure : */* mmHG Vent. Rate : 84 BPM Atrial Rate : 84 BPM P-R Int : 194 ms QRS Dur : 80 ms QT Int : 356 ms P-R-T Axes : 47 16 67 degrees QTcB Int : 420 ms Normal sinus rhythm Normal ECG Confirmed by NARCISO LPOEZ, JOSE RAMON ([id number]), international editorial producer ALEXANDRA ANNA ([id number]) on 10/15/2024 8:20:37 AM Referred By: Confirmed By: JOSE RAMON STUART MD
--- NOTE | 2024-10-14 17:11 | RAD_ITS ---
PROCEDURE: CHEST 1 VIEW (PORTABLE) (RADCXPA_P), 10/14/2024 REASON FOR EXAM: CHEST PAIN TECHNIQUE: A single portable AP view of the chest was obtained. COMPARISON: 05/10/2024 FINDINGS: Heart: Unremarkable. Mediastinum: Unremarkable. Lungs/pleura: No focal consolidation. No sizeable pleural effusion or visible pneumothorax. Bones: Unremarkable. Lines and support devices: None. Other: None. RAD/Chest 1 View (Portable) IMPRESSION: No visible acute cardiopulmonary findings Reading Location: [id number]
[2024-10-14 17:33] LABS: Absolute Lymphocyte Count 2.37 X10^3/uL (0.83-4.51); Absolute Neutrophil Count 5.9 X10^3/uL (2.0-7.7); Basophil# 0.05 X10^3/uL; Basophil% 0.5 % (0-1); Eosinophil# 0.09 X10^3/uL; Hematocrit 47.9 % (37-47); Hemoglobin 16.7 g/dL (12.0-15.0); Lymphocyte # 2.37 X10^3/ul (0.83-4.51); Lymphocyte % 25.9 % (19-41); Mean Corp Hgb Conc 34.9 g/dL (32-36); Mean Corpuscular Hgb 30.3 pg (27.0-32.0); Mean Corpuscular Volume 86.8 fL (81-99); Mean Platelet Vol. 9.9 fl (6.2-12.0); Monocyte# 0.71 X10^3/uL; Monocyte% 7.8 % (0-10); NRBC Flagged by Analyzer 0 % (0-5); Neutrophil # 5.89 X10^3/uL (2.7-7.7); Neutrophil % 64.4 % (47-70); Platelet Count 305 K/mm3 (150-450); RBC Distribution Width CV 13.2 % (11.6-14.6); RBC Distribution Width SD 41.9 fl (35.1-43.9); Red Blood Count 5.52 M/mm3 (4.2-5.4); White Blood Count 9.2 K/mm3 (4.4-11.0)
--- NOTE | 2024-10-14 17:40 | ED.VIS.CHEST ---
HPI <JERICHO [place] - Last Filed: 10/14/24 21:32> History of Present Illness Chief Complaint: Chest Pain Narrative Narrative: Patient presenting today with midsternal chest pressure she has had off-and-on over the past week. She reports that also seems to have a intermittent burning sensation to her mid back. She reports that this morning she developed a nonproductive cough and dyspnea with exertion, prompting her to come in to be seen. She additionally reports lightheadedness primarily with standing. She denies any cardiac history. She has no history of blood clots or recent surgery/travel/immobilization. She reports that she smokes about a pack per day and has been smoking since she was a teenager. She denies any history of pulmonary disease that she is aware of. 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 Nothing seems to make her chest symptoms better or worse. She has a PMH of hypothyroidism and tobacco use. She reports a previous history of T2DM but states that she is no longer on medication for this as she has gotten under control. PFSH <JERICHO [place] - Last Filed: 10/14/24 21:32> [facility] Medical History Hypothyroidism Hyperlipidemia Diabetes Home Medications ?Medication ?Instructions ?Recorded ?Last Taken ?Type levothyroxine 100 mcg tablet 100 mcg PO DAILY 05/23/22 Unknown History gabapentin 300 mg capsule 300 mg PO QHS #30 caps 12/02/23 Unknown Rx Allergy/AdvReac Type Severity Reaction Status Date / Time Penicillins (PCN) Allergy Unknown Verified 10/14/24 16:44 Family History no significant family his Social History Smoking Status: Current every day smoker tobacco type: cigarettes ROS <JERICHO [place] - Last Filed: 10/14/24 21:32> ROS ED Constitutional Constitutional ED: Denies chills or fever(s) Cardiovascular Cardiovascular: Reports chest pain; Denies palpitations Respiratory/Chest Respiratory/Chest: Reports cough and dyspnea on exertion; Denies tachypnea or wheezing Gastrointestinal Gastrointestinal: Denies abdominal pain, nausea or vomiting Musculoskeletal Musculoskeletal: Denies arthralgias or myalgias Integumentary Denies rash Neurologic Neurologic: Denies weakness EXAM <JERICHO [place] - Last Filed: 10/14/24 21:32> Physical Exam Const Vital Signs: 10/14/24 16:43 10/14/24 16:43 10/14/24 16:48 Temperature 98.2 F Temperature Source Oral Pulse Rate 86 Pulse Rate [Lying] Pulse Rate [Sitting (for 1 minute prior to obtaining)] Pulse Rate [Standing (for 1 minute prior to obtaining)] Respiratory Rate 16 Respiratory Effort Normal Non-Labored Blood Pressure 113/90 H Blood Pressure [Lying] Blood Pressure [Sitting (for 1 minute prior to obtaining)] Blood Pressure [Standing (for 1 minute prior to obtaining)] Blood Pressure Mean 97 Blood Pressure Mean [Lying] Blood Pressure Mean [Sitting (for 1 minute prior to obtaining)] Blood Pressure Mean [Standing (for 1 minute prior to obtaining)] Pulse Ox 98 Oxygen Delivery Method Room Air Room Air 10/14/24 17:43 10/14/24 19:00 10/14/24 19:41 Temperature Temperature Source Pulse Rate 69 70 Pulse Rate [Lying] 62 Pulse Rate [Sitting (for 1 minute prior to obtaining)] 74 Pulse Rate [Standing (for 1 minute prior to obtaining)] 74 Respiratory Rate 18 20 H Respiratory Effort Blood Pressure 127/74 H 113/71 Blood Pressure [Lying] 107/63 Blood Pressure [Sitting (for 1 minute prior to obtaining)] 105/66 Blood Pressure [Standing (for 1 minute prior to obtaining)] 106/63 Blood Pressure Mean 91 85 Blood Pressure Mean [Lying] 77 Blood Pressure Mean [Sitting (for 1 minute prior to obtaining)] 79 Blood Pressure Mean [Standing (for 1 minute prior to obtaining)] 77 Pulse Ox 97 98 Oxygen Delivery Method Room Air 10/14/24 20:00 10/14/24 21:00 10/14/24 21:00 Temperature 98.2 F Temperature Source Pulse Rate 66 65 65 Pulse Rate [Lying] Pulse Rate [Sitting (for 1 minute prior to obtaining)] Pulse Rate [Standing (for 1 minute prior to obtaining)] Respiratory Rate 21 H 18 18 Respiratory Effort Blood Pressure 146/96 H 127/87 H 127/87 H Blood Pressure [Lying] Blood Pressure [Sitting (for 1 minute prior to obtaining)] Blood Pressure [Standing (for 1 minute prior to obtaining)] Blood Pressure Mean 112 100 100 Blood Pressure Mean [Lying] Blood Pressure Mean [Sitting (for 1 minute prior to obtaining)] Blood Pressure Mean [Standing (for 1 minute prior to obtaining)] Pulse Ox 97 96 96 Oxygen Delivery Method Room Air Room Air Positive well nourished, well developed and no apparent distress General Appearance ED: well developed HEENT Reports normocephalic and head/scalp atraumatic Mouth ED: Yes moist mucous membranes normal Eyes PERRL and EOMs intact bilaterally Neck full ROM and supple Chest Wall inspection of chest normal Resp normal respiratory effort and clear to auscultation bilaterally Cardio regular rate and regular rhythm GI soft to palpation, non-tender, non-distended and no masses Back/Spine normal ROM and normal to inspection Extremity normal to inspection and full ROM Neuro oriented x3, CN's II-XII intact bilaterally, moves all extremities, no focal motor deficits and no sensory deficits noted Sensorium / Orientation: awake and alert Psych mental status grossly normal and thought process normal Skin no rashes or lesions noted and no wounds <Dr. Carson Thapa, DO - Last Filed: 10/15/24 02:26> Physical Exam Const Vital Signs: 10/14/24 16:43 10/14/24 16:43 10/14/24 16:48 Temperature 98.2 F Temperature Source Oral Pulse Rate 86 Pulse Rate [Lying] Pulse Rate [Sitting (for 1 minute prior to obtaining)] Pulse Rate [Standing (for 1 minute prior to obtaining)] Respiratory Rate 16 Respiratory Effort Normal Non-Labored Blood Pressure 113/90 H Blood Pressure [Lying] Blood Pressure [Sitting (for 1 minute prior to obtaining)] Blood Pressure [Standing (for 1 minute prior to obtaining)] Blood Pressure Mean 97 Blood Pressure Mean [Lying] Blood Pressure Mean [Sitting (for 1 minute prior to obtaining)] Blood Pressure Mean [Standing (for 1 minute prior to obtaining)] Pulse Ox 98 Oxygen Delivery Method Room Air Room Air 10/14/24 17:43 10/14/24 19:00 10/14/24 19:41 Temperature Temperature Source Pulse Rate 69 70 Pulse Rate [Lying] 62 Pulse Rate [Sitting (for 1 minute prior to obtaining)] 74 Pulse Rate [Standing (for 1 minute prior to obtaining)] 74 Respiratory Rate 18 20 H Respiratory Effort Blood Pressure 127/74 H 113/71 Blood Pressure [Lying] 107/63 Blood Pressure [Sitting (for 1 minute prior to obtaining)] 105/66 Blood Pressure [Standing (for 1 minute prior to obtaining)] 106/63 Blood Pressure Mean 91 85 Blood Pressure Mean [Lying] 77 Blood Pressure Mean [Sitting (for 1 minute prior to obtaining)] 79 Blood Pressure Mean [Standing (for 1 minute prior to obtaining)] 77 Pulse Ox 97 98 Oxygen Delivery Method Room Air 10/14/24 20:00 10/14/24 21:00 10/14/24 21:00 Temperature 98.2 F Temperature Source Pulse Rate 66 65 65 Pulse Rate [Lying] Pulse Rate [Sitting (for 1 minute prior to obtaining)] Pulse Rate [Standing (for 1 minute prior to obtaining)] Respiratory Rate 21 H 18 18 Respiratory Effort Blood Pressure 146/96 H 127/87 H 127/87 H Blood Pressure [Lying] Blood Pressure [Sitting (for 1 minute prior to obtaining)] Blood Pressure [Standing (for 1 minute prior to obtaining)] Blood Pressure Mean 112 100 100 Blood Pressure Mean [Lying] Blood Pressure Mean [Sitting (for 1 minute prior to obtaining)] Blood Pressure Mean [Standing (for 1 minute prior to obtaining)] Pulse Ox 97 96 96 Oxygen Delivery Method Room Air Room Air [facility] <JERICHO [place] - Last Filed: 10/14/24 21:32> [facility] Narrative Medical decision making narrative: Patient presenting today with midsternal chest pressure that she has had off-and-on over the past week, this morning she woke up with a nonproductive cough and dyspnea on exertion, prompting her to come in. She reports that she occasionally has a burning sensation to her mid back but otherwise has had no injury to her back. She reports lightheadedness with standing as well. Orthostatic vital signs will be obtained. She will be given IV fluids. Cardiac workup will be obtained. She is PERC negative and has a negative D-dimer, therefore, low suspicion for PE. Her CBC, BMP, and delta troponin are overall unremarkable. Chest x-ray negative for acute cardiopulmonary abnormality. No obvious infiltrate. EKG is normal sinus rhythm with no signs of ischemia. Low suspicion for cardiac nature of her chest pressure given this has been ongoing for a week with a negative cardiac workup. 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 Suspect that this is likely viral in nature. I will give her an albuterol inhaler here. Also recommended that she begin taking either Delsym DM or Robitussin DM for her cough. Recommended she follow-up with her PCP over the next 5 to 7 days and she will be discharged home in stable condition. Lab Data Attestation: I reviewed the patient's lab results. Lab results narrative: Hemoglobin 16.7 Labs: Laboratory Results - last 24 hr 10/14/24 10/14/24 17:08 19:37 WBC 9.2 RBC 5.52 H Hgb 16.7 H Hct 47.9 H MCV 86.8 MCH 30.3 MCHC 34.9 RDW Std Deviation 41.9 RDW Coeff of Courtney 13.2 Plt Count 305 MPV 9.9 Immature Gran % (Auto) 0.400 Neut % (Auto) 64.4 Lymph % (Auto) 25.9 Johnson % (Auto) 7.8 Eos % (Auto) 1.0 Baso % (Auto) 0.5 Absolute Neuts (auto) 5.9 Absolute Lymphs (auto) 2.37 Nucleated RBC % 0 D-Dimer Quant (PE/DVT) 0.39 Sodium 136 Potassium 4.1 Chloride 104 Carbon Dioxide 20.7 L Anion Gap 12 BUN 13 Creatinine 0.97 Estim Creat Clear Calc 83.77 Est GFR (MDRD) Non-Af 75 BUN/Creatinine Ratio 13.3 Glucose 101 H Calcium 9.6 Troponin T High Sens < 6 Troponin T Hi Sens 2 Hr < 6 Radiography X-Ray: Read by ED Physician Diagnostic Testing: Clinical Impression(s) from Imaging Studies Chest X-Ray 10/14/24 17:11 IMPRESSION: No visible acute cardiopulmonary findings Reading Location: [facility] EKG Initial EKG: Comments: 84 bpm, normal sinus rhythm, no ST elevation, interpreted by attending ED physician <Dr. Carson Thapa, DO - Last Filed: 10/15/24 02:26> [facility] Narrative Medical decision making narrative: Patient presenting today with midsternal chest pressure that she has had off-and-on over the past week, this morning she woke up with a nonproductive cough and dyspnea on exertion, prompting her to come in. She reports that she occasionally has a burning sensation to her mid back but otherwise has had no injury to her back. She reports lightheadedness with standing as well. Orthostatic vital signs will be obtained. She will be given IV fluids. Cardiac workup will be obtained. She is PERC negative and has a negative D-dimer, therefore, low suspicion for PE. Her CBC, BMP, and delta troponin are overall unremarkable. Chest x-ray negative for acute cardiopulmonary abnormality. No obvious infiltrate. EKG is normal sinus rhythm with no signs of ischemia. Low suspicion for cardiac nature of her chest pressure given this has been ongoing for a week with a negative cardiac workup. 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 Suspect that this is likely viral in nature. I will give her an albuterol inhaler here. Also recommended that she begin taking either Delsym DM or Robitussin DM for her cough. Recommended she follow-up with her PCP over the next 5 to 7 days and she will be discharged home in stable condition. Supervisory Physician Note Patient was seen and examined with the Advanced Practice Provider. Nursing notes and vital signs have been reviewed. Pertinent old records have been reviewed. I agree with the essential elements of the JAYJAY's history, physical exam, assessment, and plan. The differential diagnosis and management options were discussed with the JAYJAY. I participated in determining and agree with the management, procedures, final impression and disposition as documented. See changes noted by me. Please see addendum or separate note for any additional details. Lab Data Labs: Laboratory Results - last 24 hr 10/14/24 10/14/24 17:08 19:37 WBC 9.2 RBC 5.52 H Hgb 16.7 H Hct 47.9 H MCV 86.8 MCH 30.3 MCHC 34.9 RDW Std Deviation 41.9 RDW Coeff of Courtney 13.2 Plt Count 305 MPV 9.9 Immature Gran % (Auto) 0.400 Neut % (Auto) 64.4 Lymph % (Auto) 25.9 Johnson % (Auto) 7.8 Eos % (Auto) 1.0 Baso % (Auto) 0.5 Absolute Neuts (auto) 5.9 Absolute Lymphs (auto) 2.37 Nucleated RBC % 0 D-Dimer Quant (PE/DVT) 0.39 Sodium 136 Potassium 4.1 Chloride 104 Carbon Dioxide 20.7 L Anion Gap 12 BUN 13 Creatinine 0.97 Estim Creat Clear Calc 83.77 Est GFR (MDRD) Non-Af 75 BUN/Creatinine Ratio 13.3 Glucose 101 H Calcium 9.6 Troponin T High Sens < 6 Troponin T Hi Sens 2 Hr < 6 Radiography Diagnostic Testing: Clinical Impression(s) from Imaging Studies Chest X-Ray 10/14/24 17:11 IMPRESSION: No visible acute cardiopulmonary findings Reading Location: [facility] Discharge Plan Triage Chief Complaint: Chest Pain ED Midlevel Provider: Ashleigh Godwin ED Provider: Carson Thapa Dx/Rx/DC Orders Clinical Impression: Cough, Atypical chest pain Instructions: Acute Bronchitis, ED Chest Pain, Uncertain Cause Prescriptions: No Action levothyroxine 100 mcg tablet 100 mcg PO DAILY gabapentin 300 mg capsule 300 mg PO QHS Qty: 30 0RF Primary Care Provider: Norberto Will Referrals: Norberto Will MD [Primary Care Provider] - 5-7 Days Activity Restrictions/Additional Instructions: Follow-up with your PCP and return for any worsening symptoms. Print Language: Macedonian Disposition Disposition: Home, Self Care Discharge Date/Time: 10/14/24 21:26
[2024-10-14 17:43] VITALS: BP 127/74; PULSE 69; RESP 18; O2SAT 97
[2024-10-14 17:54] LABS: BUN 13 mg/dL (4-19); Creatinine, Serum 0.97 mg/dL (0.70-1.20); Estimated Creatinine Clearance 83.77 ml/min (50-250); Glucose 101 mg/dL (70-99)
[2024-10-14 17:55] LABS: Anion Gap 12 (5-15); BUN/Creat Ratio 13.3 RATIO (10-20); Calcium,Total 9.6 mg/dL (7.6-11.0); Carbon Dioxide 20.7 mmol/L (21.0-32.0); Chloride 104 mmol/L (98-108); EST Glomerular Filtration Rate 75 (>60); Potassium 4.1 mmol/L (3.3-5.1); Sodium Level 136 mmol/L (133-145); Troponin T High Sensitivity < 6 ng/L (<=14)
[2024-10-14] MEDS: Ketorolac 15 MG/ML Vial IV (18:19)
[2024-10-14] MEDS: 0.9% Normal Saline (1000mL) 1,000 ML 999 ML IV (18:19)
[2024-10-14 19:00] VITALS: BP 113/71; PULSE 70; RESP 20; O2SAT 98
[2024-10-14 19:06] LABS: D-Dimer Quantitative (DVT/PE) 0.39 FEU/ug/m (0.27-0.49)
[2024-10-14 19:41] VITALS: BP 105/66; BP 106/63; BP 107/63; PULSE 62; PULSE 74
[2024-10-14 20:00] VITALS: BP 146/96; PULSE 66; RESP 21; O2SAT 97
[2024-10-14 20:31] LABS: Troponin T High Sens 2 HR < 6 ng/L (<=14)
[2024-10-14 21:00] VITALS: BP 127/87; PULSE 65; RESP 18; TEMP 36.8; O2SAT 96
[2024-10-14] MEDS: Albuterol Sulfate 8 gm Inhaler (60 puffs) 2 PUFF INHALATION (21:17)
== END 2024-10-14 21:26 | disposition home or self-care (01) ==
PROVIDERS: Emergency Provider Surgery; PCP Family Medicine; Visit Provider Surgery
DX: R05.9 Cough, unspecified (principal); E11.9 Type 2 diabetes mellitus without complications; R07.89 Other chest pain; E78.5 Hyperlipidemia, unspecified; F17.210 Nicotine dependence, cigarettes, uncomplicated; E03.9 Hypothyroidism, unspecified; R06.09 Other forms of dyspnea
CPT/HCPCS: 71045; 80048; 84484; 85025; 85379; 93005; 96361; 96374; 99285; A4216